=== PATIENT | male | born 1965 | race Caucasian/White ===

== ENCOUNTER 2016-12-01 08:33 | Observation (INO) | payer BC ==
[~2016-12-01] VITALS: Ht 188 cm; Wt 155.1 kg
[~2016-12-01 08:33] MED LIST: ASPIR 8181 M1 PO; ASPIRIN EC325 MG PO; BENICAR HCT 201 EACH; COZAAR50 MG PO; DOK PLUS TABLE1 EACH PO; GLUCOSAMINE &1 EAC1 PO; HYDROCODON-ACE1 EAC7 PO; HYZAAR 50-121 TABLET PO; MOTRIN800 MG PO; VITAMIN D35000 UNIT PO; ZYRTEC10 M2 PO
[2016-12-01 09:38] LABS: CHLORIDE 104 mEq/L (99-109); POTASSIUM 3.9 mEq/L (3.7-5.4); SODIUM 139 mEq/L (136-147)
[2016-12-01 09:40] LABS: GLUCOSE 125 mg/dL (70-99)
[2016-12-01 09:41] LABS: ANION GAP 11 MEQ/L (2-14); EOSINOPHIL (%) 0 % (0-5); HEMATOCRIT 45.3 % (38.0-50.0); IMMATURE GRANULOCYTE (%) 0.5 % (0.0-0.7); INSTRUMENT ABS NEUTROPHIL CT 3.5 K/uL; MCH 30.9 PG (29.0-34.0); MCHC 35.8 G/DL (30.0-36.0); MCV 86.3 FL (86-99); MONOCYTE (%) 5.8 % (3-12); MONOCYTE COUNT 0.3 K/uL (0-0.8); NEUTROPHIL (%) 59.3 % (45-76); NEUTROPHIL COUNT 3.5 K/uL (1.8-6.4); RBC DIS.WIDTH-CV 12.2 % (11.8-14.6); RBC DIS.WIDTH-SD 37.9 % (39-53); RED BLOOD COUNT 5.25 M/uL (4.00-5.50); WHITE BLOOD COUNT 5.9 K/uL (4.1-10.2)
[2016-12-01 09:44] LABS: GFR ESTIMATE (CALCULATED) > 59 mL/min/
[2016-12-01 09:45] LABS: UREA NITROGEN (BUN) 10 mg/dL (9-23)
[2016-12-01 09:47] LABS: TROP-I INTERPRETATION NEGATIVE; TROPONIN-I < 0.01 ng/mL (0.0-0.30)
[2016-12-01] MEDS ORDERED: ASPIR-LOW81 MG PO (11:18)
[2016-12-01] MEDS ORDERED: DUTASTERIDE0.5 MG PO (11:20)
[2016-12-01] MEDS ORDERED: TAMSULOSIN HCL0.4 MG PO (11:20)
[2016-12-01] MEDS ORDERED: MULTI-VITAMIN1 EAC4 PO (11:20)
[2016-12-01 11:37] LABS: MEAN PLAT.VOLUME 10.2 uM^3 (9.0-12.4)
[2016-12-01 13:01] LABS: TROP-I INTERPRETATION NEGATIVE; TROPONIN-I 0.01 ng/mL (0.0-0.30)
[2016-12-01 13:30] VITALS: BP 127/76
[2016-12-01 16:27] VITALS: BP 137/77
[2016-12-01 19:30] VITALS: BP 133/63
[2016-12-01 21:50] LABS: TROP-I INTERPRETATION NEGATIVE; TROPONIN-I 0.02 ng/mL (0.0-0.30)
[2016-12-02 00:15] VITALS: BP 133/86
[2016-12-02 06:11] LABS: HEMATOCRIT 44.5 % (38.0-50.0); MCH 30.6 PG (29.0-34.0); MCHC 34.6 G/DL (30.0-36.0); MCV 88.3 FL (86-99); PLATELET COUNT 187 K/uL (156-360); RBC DIS.WIDTH-CV 12.6 % (11.8-14.6); RBC DIS.WIDTH-SD 40.2 % (39-53); RED BLOOD COUNT 5.04 M/uL (4.00-5.50); WHITE BLOOD COUNT 6.4 K/uL (4.1-10.2)
[2016-12-02 06:32] LABS: ANION GAP 10 MEQ/L (2-14); CHLORIDE 101 MEQ/L (99-109); GFR ESTIMATE (CALCULATED) > 59 mL/min/; GLUCOSE 126 mg/dL (70-99); POTASSIUM 3.8 MEQ/L (3.7-5.4); SAMPLE HEMOLYSIS CHECK 0; SAMPLE ICTERIC CHECK 0; SAMPLE LIPEMIA CHECK 0; SODIUM 139 MEQ/L (136-147); UREA NITROGEN (BUN) 13 mg/dL (9-23)
[2016-12-02 07:35] VITALS: BP 120/59
[2016-12-02 11:30] VITALS: BP 143/87
== END 2016-12-02 12:23 | disposition home or self-care (01) ==
LOC: EME 08:33 → EDOF 11:34 → 5WEST 12:57
PROVIDERS: Emergency Medicine; Internal Medicine
DX: R07.89 Other chest pain (principal); I10 Essential (primary) hypertension; I44.7 Left bundle-branch block, unspecified; G47.33 Obstructive sleep apnea (adult) (pediatric); E66.9 Obesity, unspecified; Z68.41 Body mass index [BMI] 40.0-44.9, adult
CPT/HCPCS: 71010; 80048; 84484; 85025; 85027; 93005; 99281; 99283; G0378

== ENCOUNTER 2017-01-21 11:33 | Day surgery (SDC) | payer BC ==
[~2017-01-21] VITALS: Ht 188 cm; Wt 155.1 kg
[~2017-01-21 11:33] MED LIST changes: +ASPIR-LOW81 MG PO; +DUTASTERIDE0.5 MG PO; +METOPROLOL TART25 MG PO; +MULTI-VITAMIN1 EAC4 PO; +NITROGLYCERIN0.4 MG SL; +TAMSULOSIN HCL0.4 MG PO
== END 2017-01-21 16:50 | disposition home or self-care (01) ==
LOC: CATH 11:33
PROC: B2111ZZ Fluoroscopy of Multiple Coronary Arteries using Low Osmolar Contrast (ICD-10-PCS; principal; 2017-01-21)
PROC: B2151ZZ Fluoroscopy of Left Heart using Low Osmolar Contrast (ICD-10-PCS; principal; 2017-01-21)
PROC: 4A023N7 Measurement of Cardiac Sampling and Pressure, Left Heart, Percutaneous Approach (ICD-10-PCS; principal; 2017-01-21)
DX: I25.10 Atherosclerotic heart disease of native coronary artery without angina pectoris (principal); I10 Essential (primary) hypertension; I44.7 Left bundle-branch block, unspecified; E66.01 Morbid (severe) obesity due to excess calories; Z68.41 Body mass index [BMI] 40.0-44.9, adult; G47.33 Obstructive sleep apnea (adult) (pediatric); Z79.82 Long term (current) use of aspirin; Z88.2 Allergy status to sulfonamides; Z82.49 Family history of ischemic heart disease and other diseases of the circulatory system
CPT/HCPCS: C1769; C1887; J1644; J2250; J3010